=== PATIENT | female | born 1945 | race Caucasian/White ===

== ENCOUNTER → 2020-03-06 09:50 | Outpatient (BNVA) | payer MEDICARE, SELFPAY | PROVIDERS: PCP Urology; Visit Provider Urology | DX: C67.9 Malignant neoplasm of bladder, unspecified (principal) | CPT/HCPCS: 52000; 99212 ==

== ENCOUNTER → 2020-09-04 09:41 | Outpatient (BNVA) | payer MEDICARE, OTHER, SELFPAY | PROVIDERS: Visit Provider Urology | DX: C67.9 Malignant neoplasm of bladder, unspecified (principal) | CPT/HCPCS: 52000 ==

== ENCOUNTER 2021-03-12 09:34 | Outpatient (REF) | payer MEDICARE, OTHER, SELFPAY ==
[2021-03-12 16:46] LABS: Urine Cytology See Pathology rpt
== END 2021-03-12 09:35 | disposition home or self-care (01) ==
LOC: HO.LAB 09:34
PROVIDERS: Visit Provider Urology
DX: C67.9 Malignant neoplasm of bladder, unspecified (principal); F17.200 Nicotine dependence, unspecified, uncomplicated
CPT/HCPCS: 52000; 88112; 99212

== ENCOUNTER 2022-03-12 09:40 | Outpatient (REF) | payer MEDICARE, OTHER, SELFPAY ==
[2022-03-12 17:31] LABS: Urine Cytology See Pathology rpt
== END 2022-03-12 09:41 | disposition home or self-care (01) ==
LOC: HO.LAB 09:40
PROVIDERS: Visit Provider Urology
DX: C67.9 Malignant neoplasm of bladder, unspecified (principal)
CPT/HCPCS: 52000; 88112; 99212

== ENCOUNTER 2022-12-24 08:31 | Outpatient (AMB) | payer MEDICARE, SELFPAY ==
--- NOTE | 2022-12-24 08:33 | MHC.OFFWIV ---
Intake Vital Signs 12/24/22 08:35 Height 5 ft 6 in Weight 109 lb 2 oz BMI 17.6 BP 110/70 Blood Pressure Location Rt brachial Position Sitting Pulse 61 Pulse Source Pulse Oximeter Temp 97 F Temp Source Temporal Artery Scan Pulse Oximetry (%) 99 Oxygen Delivery Method Room Air Intake Visit Reasons: EP, constipation Intake Note: Pt is here c/o constipation for the past month. Patient Tobacco Use Status: Current everyday Tobacco user Allergies penicillin G Allergy (Unknown, Verified 12/24/22 08:34) unknown Penicillins [PENICILLINS] Allergy (Unknown, Verified 12/24/22 08:34) HIVES sulfa Allergy (Unknown, Uncoded 12/24/22 08:34) unknown Do you need a note to return to daycare/school/sports/work: No HPI EP, constipation HPI Details 77-year-old female patient presents today with a 1 month history of constipation. She reports infrequent bowel movements, only a couple times a week, and these are hard formed stools, she reports sometimes as rivera . She denies any abdominal pain fever, chills, or blood in stool. She states that if she takes a laxative she is able to softer bowel movements, however sometimes these become liquid form. She denies any changes in her. She has tried akgz-wsv-nhiqmqz milk of magnesia Colace, and MiraLax. She admits she is not drinking much water, and mostly drinks several cups per day. Denies any issues with urination. Denies any weight gain or weight loss. She does not have a primary care provider at this time. [facility] Medical History Malignant neoplasm of lateral wall of urinary bladder Bladder mass Surgical History History of appendectomy Social History Patient Tobacco Use Status: Current everyday Tobacco user Review of Systems Const All systems reviewed & are unremarkable except as noted in HPI and below Physical Exam Const General: cooperative, healthy appearing, comfortable and no acute distress Resp Effort & Inspection: normal respiratory effort and able to speak in complete sentences Cardio Jugular venous distension: no JVD Palpation: normal PMI Rate: regular rate Rhythm: regular rhythm GI Inspection: Yes normal to inspection Palpation (GI): Soft to palpation and No hepatosplenomegaly present Percussion: Yes normal to percussion Auscultation: normal bowel sounds Skin General skin exam: no rashes or lesions noted Extrem General: Yes capillary refill normal Psych Appearance: grossly normal Mental Status: mental status grossly normal Speech and movement: Normal speech and movement present Assessment & Plan Assessment & Plan (1) Constipation: Code(s): K59.00 - Constipation, unspecified Qualifiers: Constipation type: unspecified constipation type Qualified Code(s): K59.00 - Constipation, unspecified Plan: I had a lengthy discussion with patient regarding increase of fluids and fiber in her diet. I printed her out a list of foods high in fiber. I am also going to start her Senokot BID. I would like her to get established with a PCP which patient agrees with, and she is going to stop at the desk prior to leaving today to make an appointment for a new patient with a PCP with [facility]. We discussed that if she develops any abdominal pain, distention, bloody stool, fever, or worsening constipation, she should go to emergency for evaluation. She verbalizes understanding and agrees to plan. Medications: New sennosides 8.6 mg PO BID 30 days 60 tabs 0RF K59.00 - Constipation, unspecified Coding Level of Care Code Est Pt Level 3 (00050) Diagnoses Constipation, unspecified constipation type K59.00 Constipation type: unspecified constipation type
[2022-12-24 08:35] VITALS: BP 110/70; PULSE 61; TEMP 36.1; O2SAT 99; BMI 17.6
== END 2022-12-24 09:08 | disposition home or self-care (01) ==
PROVIDERS: Visit Provider Nurse Practitioner Family
DX: K59.00 Constipation, unspecified (principal)
CPT/HCPCS: 99213

== ENCOUNTER 2023-01-16 08:16 | Outpatient (AMB) | payer MEDICARE, SELFPAY ==
--- NOTE | 2023-01-16 08:33 | AM.OFFWIN_ITS ---
Intake Vital Signs 01/16/23 08:38 Height 5 ft 6 in Weight 106 lb 6 oz BMI 17.2 BP 140/80 H Blood Pressure Location Rt brachial Position Sitting Pulse 78 Pulse Source Pulse Oximeter Temp 98.3 F Temp Source Temporal Artery Scan Pulse Oximetry (%) 98 Oxygen Delivery Method Room Air Intake Visit Reasons: EST/bowel issues (lobby) Intake Note: pt is here for c/o bowel issues, constipation Patient Tobacco Use Status: Current everyday Tobacco user Allergies penicillin G Allergy (Unknown, Verified 01/16/23 09:08) unknown Penicillins [PENICILLINS] Allergy (Unknown, Verified 01/16/23 09:08) HIVES sulfa Allergy (Unknown, Uncoded 01/16/23 09:08) unknown Medication List - Last Reconciled 01/16/23 by Kashif Ahmadi MD sennosides 8.6 mg PO BID 30 days Do you need a note to return to daycare/school/sports/work: Yes HPI EST/bowel issues (lobby) HPI Details 77-year-old female presents to the offic e for a sick visit. Patient complains of change in bowel habits for the past 3 months. She is not a ble to have regular bowel movements. She feels constipated all the time. After she takes zytb-eqz-dsjnzew fiber, Metamucil etc, she is able to have 1 bowel movement in a week. Small quantity of stool past. No blood or mucus. Occasionally 1 or 2 episodes of loose stool. Decrease in appetite but no weight loss reported. Patient gives history of bladder cancer and is on yearly surveillance. [facility] Medical History Malignant neoplasm of lateral wall of urinary bladder Bladder mass Surgical History History of appendectomy Social History Patient Tobacco Use Status: Current everyday Tobacco user Physical Exam Vital Signs: Last Vital Signs Temp 98.3 F 01/16/23 08:38 Pulse 78 01/16/23 08:38 BP 140/80 H 01/16/23 08:38 Pulse Ox 98 01/16/23 08:38 Oxygen Delivery Method Room Air 01/16/23 08:38 BMI result Body Mass Index 17.2 Const Other: Thin. General: cooperative and healthy appearing Nutritional Appearance: well nourished Orientation/consciousness: patient oriented x3 Limitations: no limitations HEENT Head: Yes normal to inspection Eyes General: appearance normal, both eyes and all related structures Neck Neck: Yes normal visual inspection Chest Chest palpation & inspection: normal palpation of entire chest wall Resp Effort & Inspection: normal respiratory effort Neuro General: patient oriented x3 Assessment & Plan Assessment & Plan (1) Constipation: Code(s): K59.00 - Constipation, unspecified Plan: X-ray of the abdomen was consistent with constipation. Fleet enema ordered. Patient needs an urgent colonoscopy. Have accepted her as a primary care provider and given an appointment at [place] soon. Blood work has been ordered. Will continue to follow-up. Orders: Orders XR abdomen min 2V Today K59.00 - Constipation, unspecified Lipid Panel Today K59.00 - Constipation, unspecified Erythrocyte Sedimentation Rate Today K59.00 - Constipation, unspecified Basic Metabolic Panel Today K59.00 - Constipation, unspecified Complete Blood Count no Diff Today K59.00 - Constipation, unspecified Liver Panel Today K59.00 - Constipation, unspecified Thyroid Stimulating Hormone Today K59.00 - Constipation, unspecified Referrals Gastroenterology Referral K59.00 - Constipation, unspecified Coding Level of Care Code Est Pt Level 4 (84601) Diagnoses Constipation K59.00
[2023-01-16 08:38] VITALS: BP 140/80; PULSE 78; TEMP 36.8; O2SAT 98; BMI 17.2
== END 2023-01-16 09:27 | disposition home or self-care (01) ==
PROVIDERS: Visit Provider Internal Medicine
DX: K59.00 Constipation, unspecified (principal)
CPT/HCPCS: 99214

== ENCOUNTER 2023-01-16 09:06 | Outpatient (REF) | payer MEDICARE, SELFPAY ==
--- NOTE | ~2023-01-16 | XR_ITS ---
EXAMINATION: XR ABDOMEN COMPLETE CLINICAL INDICATION: 77-year-old female with constipation. COMPARISON: None available. TECHNIQUE: 2 views of the abdomen. FINDINGS: The bowel gas pattern is normal with no evidence of ileus or obstruction. No unusual soft tissue calcifications are noted. The bones are unremarkable. XR/XR abdomen min 2V IMPRESSION: Unremarkable examination.
[2023-01-16 11:36] LABS: Hematocrit 46.4 % (37.0-47.0); Hemoglobin 15.9 g/dl (12.0-16.0); Mean Corpuscular HGB Conc 34.3 g/dl (31.0-35.0); Mean Corpuscular Hemoglobin 32.9 pg (27.0-33.0); Mean Corpuscular Volume 95.9 fL (80.0-98.0); Mean Platelet Volume 10.4 fL (9.4-12.3); Platelet Count 256 X10*3/uL (160-400); Red Blood Count 4.84 X10*6/uL (4.20-5.50); Red Cell Distribution Width 13.7 % (11.0-16.0); White Blood Count 5.4 X10*3/uL (4.8-10.8)
[2023-01-16 12:13] LABS: Erythrocyte Sedimentation Rate 4 MM/HR (0-20)
[2023-01-16 12:31] LABS: Alanine Aminotransferase 13 U/L (0-31); Albumin Level 4.4 g/dL (3.5-5.0); Alkaline Phosphatase 87 U/L (39-117); Anion Gap 14 (12-20); Aspartate Amino Transferase 23 U/L (5-31); Bilirubin Direct 0.2 mg/dL (0.0-0.5); Bilirubin Total 0.6 mg/dL (0.0-1.0); Blood Urea Nitrogen 8 mg/dL (9-16); Calcium 9.6 mg/dL (8.4-10.2); Carbon Dioxide 27 mmol/L (22-29); Chloride 102 mmol/L (96-108); Cholesterol 209 mg/dL (<200); Estimated Glomerular Filt Rate > 60; Glucose Random 82 mg/dL (60-115); HDL Cholesterol 82 mg/dL (>40); LDL Cholesterol Calculated 110 mg/dL (<100); Potassium 3.8 mmol/L (3.3-5.1); Sodium 139 mmol/L (135-145); Total Protein 7.5 g/dL (6.5-8.0); Triglycerides 88 mg/dL (<150)
[2023-01-16 12:38] LABS: Thyroid Stimulating Hormone 2.05 uIU/mL (0.32-4.0)
== END 2023-01-16 09:07 | disposition home or self-care (01) ==
LOC: HO.HMGCX 09:06
PROVIDERS: Visit Provider Internal Medicine
DX: K59.00 Constipation, unspecified (principal)
CPT/HCPCS: 36415; 74019; 80048; 80061; 80076; 84443; 85027; 85652

== ENCOUNTER 2023-01-29 08:24 | Outpatient (AMB) | payer MEDICARE, SELFPAY ==
[2023-01-29 08:39] VITALS: BP 160/92; PULSE 77; O2SAT 97; BMI 17.3
--- NOTE | 2023-01-29 08:39 | A.OFFPC_ITS ---
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 Required: No Accompanied by: Self / Same As Patient Allergies penicillin G Allergy (Unknown, Verified 01/29/23 09:11) unknown Penicillins [PENICILLINS] Allergy (Unknown, Verified 01/29/23 09:11) HIVES sulfa Allergy (Unknown, Uncoded 01/29/23 09:11) unknown Medication List - Last Reconciled 01/29/23 by Kashif Ahmadi MD bisacodyl (Fleet Bisacodyl) 10 mg (30 mL) [place] DAILY PRN sennosides 8.6 mg PO BID 30 days Tobacco use date assessed: 01/29/23 Fall risk assessment: No Falls in past year Last assessed Fall Risk: 01/29/23 Dental Screening Dental Screen Date: 01/29/23 Did you have a dental visit in the last 12 months?: No Did you have a dental problem in the last 6 months where you did not have access to dental care?: No Was dental information given to patient?: Patient has dentist HPI Constipation f/u HPI Details 77-year-old female presents to the offic e to discuss her chronic medical conditions. I had seen her for the 1st time in the walk-in clinic. She was complaining of constipation. Patient was tried an enema, unfortunately the insurance did not approve it. She is been using Dulcolax suppositories with some relief. Pain symptoms have subsided. She is awaiting the colonoscopy. [facility] Medical History (Updated 01/29/23 @ 09:18 by Kashif Ahmadi MD) Essential hypertension Tobacco use disorder Malignant neoplasm of lateral wall of urinary bladder Bladder mass Surgical History History of appendectomy Social History (Updated 01/29/23 @ 08:43 by JESE Garcia) Housing: House Alcohol intake: current Alcohol intake frequency: 0-2 drinks per day Alcohol type: beer Patient Tobacco Use Status: Current everyday Tobacco user Tobacco use type: Cigarette Cigarette Packs Per Day: 1 e-Cigarette/Vaping Use: Never Used Second Hand Smoke Exposure: No service: No Current occupational status: retired Cognitive needs: No Hearing needs: No Vision needs: Yes Questionnaire PHQ-9 Over the last 2 weeks, how often have you been bothered by any of the following problems? 1. Little interest or pleasure in doing things: not at all 2. Feeling down, depressed, or hopeless: not at all 3. Trouble falling or staying asleep, or sleeping too much: not at all 4. Feeling tired or having little energy: not at all 5. Poor appetite or overeating: not at all 6. Feeling bad about yourself - or that you are a failure or have let yourself or your family down: not at all 7. Trouble concentrating on things, such as reading the newspaper or watching television: not at all 8. Moving or speaking so slowly that other people could have noticed. Or the opposite - being so fidgety or restless that you have been moving around a lot more than usual: not at all 9. Thoughts that you would be better off or of hurting yourself in some way: not at all Total score: 0 Depression Screening Interpretation: Negative Depression Screening Done: Yes Source: Developed by Drs. Elroy Valdovinos, Jacklyn Caruso, Jason Rodriguez and colleagues, with an educational tenisha from [employer]. Thrive Questionnaire Currently or been in a relationship where the following occur: no concerns reported NAOMY-7 AMB Questionnaire NAOMY-7 Date NAOMY - 7 assessed: 01/29/23 Feeling nervous, anxious, or on edge: 0 = Not at all Not being able to stop or control worryin = Not at all Worrying too much about different things: 0 = Not at all Trouble relaxin = Not at all Being so restless that it is hard to sit still: 0 = Not at all Becoming easily annoyed or irritable: 0 = Not at all Feeling afraid as if something awful might happen: 0 = Not at all Total NAOMY-7 score (0-4 normal; 5-9 mild; 10-14 moderate; 15-21 severe): 0 Source: Developed by Jacklyn Orourke Kurt Kroenke and colleagues, with an educational tenisha from [employer]. Physical exam (Primary Care) Vital Signs: Last Vital Signs Pulse 77 01/29/23 08:39 BP 160/92 H 01/29/23 08:39 Pulse Ox 97 01/29/23 08:39 Oxygen Delivery Method Room Air 01/29/23 08:39 Care Plan Goal for BP management: Elevated blood pressure. Multiple readings requested. BMI result Body Mass Index 17.3 Tobacco/Smoking Status: Tobacco use Status Tobacco use date assessed 01/29/23 01/29/23 08:45 Patient Tobacco Use Status Current everyday Tobacco 01/29/23 08:45 Tobacco use type Cigarette 01/29/23 08:45 e-Cigarette/Vaping Use Never Used 01/29/23 08:45 Are you ready to quit: No Tobacco cessation counseling provided: No PHQ-9: PHQ-9 Score PHQ-9: Total score 0 01/29/23 08:45 Depression Screening Interpretation: Negative Currently or been in a relationship where the following occur: no concerns reported Advance Care Planning discussion: Exists, not on file Date of discussion: 01/29/23 Who was present: Patient Forms completed: Health Care Proxy and MOL[facility] Actual minutes spent: 5 Const General: cooperative and healthy appearing Nutritional Appearance: well nourished Orientation/consciousness: patient oriented x3 Limitations: no limitations HENMT Head: Yes normal to inspection Eyes General: appearance normal, both eyes and all related structures Neck Neck: Yes normal visual inspection Chest Chest palpation & inspection: normal palpation of entire chest wall Resp Effort & Inspection: normal respiratory effort Neuro General: patient oriented x3 Office Procedures Flu Questionnaire Does the patient have a severe egg allergy?: No Immunizations flu vacc [id number] 6mos up(PF) 60 mcg(15 mcgx4)/0.5 mL IM syringe Performing Provider: Kashif Ahmadi MD [facility] Documented (not given) by: JESE Garcia on 01/29/23 08:46 Reason Not Given: Patient Refused Assessment and Plan Assessment & Plan (1) Bladder cancer: Comment: April 2018 TA low-grade Code(s): C67.9 - Malignant neoplasm of bladder, unspecified Plan: This condition is stable. Currently patient is on no follow-up. (2) Tobacco use disorder: Code(s): F17.200 - Nicotine dependence, unspecified, uncomplicated Plan: Patient not willing to quit smoking. (3) Constipation: Code(s): K59.00 - Constipation, unspecified (4) Essential hypertension: Code(s): I10 - Essential (primary) hypertension Plan: Blood pressure is elevated. This is the 1st isolated elevated blood pressure. I recommended that the patient check her blood pressures on more than 1 occasion in the next 3 weeks. Follow-up appointment has been given. Orders: Orders Influenza [id number] Immunization Today Z23 - Encounter for immunization Coding Level of Care Code Est Pt Level 4 (82532) Diagnoses Bladder cancer C67.9 Tobacco use disorder F17.200 Constipation K59.00 Essential hypertension I10 Additional Codes Vital Signs *Quality* - Advance Care Planning discussion: Exists, not on file ([id number])
== END 2023-01-29 09:15 | disposition home or self-care (01) ==
PROVIDERS: Visit Provider Internal Medicine
DX: K59.00 Constipation, unspecified (principal); F17.210 Nicotine dependence, cigarettes, uncomplicated; I10 Essential (primary) hypertension; Z00.00 Encounter for general adult medical examination without abnormal findings; C67.9 Malignant neoplasm of bladder, unspecified
CPT/HCPCS: 1123F; 99214

== ENCOUNTER 2023-02-04 11:40 | Outpatient (AMB) | payer MEDICARE, SELFPAY ==
--- NOTE | 2023-02-04 12:00 | MHC.OFFVIS ---
Intake Vital Signs 02/04/23 12:01 Height 5 ft 6 in Weight 105 lb BMI 16.9 BP 141/69 H Blood Pressure Location Lt brachial Position Sitting Pulse 81 Intake Visit Reasons: Colonoscopy Screening Intake Note: Patient new consult for 2st pre colonoscopy screening. Patient cc: constipation, denies any other GI issues. 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 Accompanied by: Self / Same As Patient Allergies penicillin G Allergy (Unknown, Verified 02/04/23 11:59) unknown Penicillins [PENICILLINS] Allergy (Unknown, Verified 02/04/23 11:59) HIVES sulfa Allergy (Unknown, Uncoded 01/29/23 09:11) unknown Medication List - Last Reconciled 02/04/23 by Carolyn Esparza PA-C bisacodyl (Fleet Bisacodyl) 10 mg (30 mL) [place] DAILY PRN sennosides 8.6 mg PO BID 30 days HPI HPI Comments History of Present Illness Details A 77 y/o female with chronic constipation- no pain, no blood she has never has colonoscopy - taking fiber she is well tried senna without much change Appetite is fairly good, she never eaten much, she has always been thin, she is active History of bladder cancer she follows with urology annually she has had no further issues Reviewed labs TSH normal No nausea, vomiting, hematemesis, hematochezia fever chills PFSH Medical History (Updated 02/04/23 @ 13:08 by Carolyn Esparza PA-C) Essential hypertension Tobacco use disorder Malignant neoplasm of lateral wall of urinary bladder Bladder mass Surgical History History of appendectomy Social History (Updated 02/04/23 @ 12:34 by Carolyn Esparza PA-C) Household Members Other:: 5 children Housing: House Alcohol intake: current Alcohol intake frequency: 0-2 drinks per day Alcohol type: beer Patient Tobacco Use Status: Current everyday Tobacco user Tobacco use type: Cigarette Cigarette Packs Per Day: 1 e-Cigarette/Vaping Use: Never Used Second Hand Smoke Exposure: No service: No Current occupational status: retired Cognitive needs: No Hearing needs: No Vision needs: Yes Review of Systems Const All systems reviewed & are unremarkable except as noted in HPI and below Card Denies chest pain and Denies dyspnea Resp Denies dyspnea GI Denies abdominal pain, Denies hematochezia, Reports constipation, Denies heartburn, Denies nausea and Denies vomiting Psych Reports anxiety Physical Exam Vital Signs: Last Vital Signs Pulse 81 02/04/23 12:01 BP 141/69 H 02/04/23 12:01 BMI result Body Mass Index 16.9 Const General: cooperative, healthy appearing and comfortable Orientation/consciousness: patient oriented x3 Limitations: no limitations Eyes Sclerae: sclerae normal Resp Effort & Inspection: normal respiratory effort and able to speak in complete sentences Auscultation: clear to auscultation bilaterally, no rales, no rhonchi and no wheezes Cardio Rate: regular rate Rhythm: regular rhythm Heart sounds: S1 normal heart sound present and S2 normal heart sound present GI Palpation (GI): Soft to palpation and nontender Auscultation: normal bowel sounds Neuro General: patient oriented x3 Extrem General: Yes full ROM Psych Appearance: well kempt Mental Status: mental status grossly normal Speech and movement: Normal speech and movement present Affect: normal affect Attitude: cooperative Thought process: Normal thought process present Thought content: Normal thought content present Results Reviewed Results Reviewed: FINDINGS: The bowel gas pattern is normal with no evidence of ileus or obstruction. No unusual soft tissue calcifications are noted. The bones are unremarkable. Assessment & Plan Assessment & Plan (1) History of chronic constipation: Comment: History bladder cancer, Senna, inconsistent Does not eat much for fiber Code(s): Z87.19 - Personal history of other diseases of the digestive system Plan: consistent bowel regimen Maintain high-fiber diet, supplements Colonoscopy (2) Encounter for screening colonoscopy: Comment: Very pleasant, somewhat anxious 77-year-old alert female Never had colonoscopy, do recommend certainly given medical history She has agreed Reviewed procedure, rare risks, need for escort Code(s): Z12.11 - Encounter for screening for malignant neoplasm of colon Plan: Index colonoscopy (3) Bladder cancer: Comment: April 2018 TA low-grade Code(s): C67.9 - Malignant neoplasm of bladder, unspecified Plan: Follows annually Plan Colonoscopy MiraLax Gatorade prep Consistent bowel regimen-she has MiraLax at home which she will take q.h.s. as well as Colace 200 mg Maintain high-fiber diet reviewed min use, literature given, Encouraged to call with any questions or concerns Appreciate the opportunity assist in the care this pleasant patient Orders: Orders Colonoscopy - GI Use Only Today C67.9 - Malignant neoplasm of bladder, unspecified, Z12.11 - Encounter for screening for malignant neoplasm of colon, Z87.19 - Personal history of other diseases of the digestive system Medications: New polyethylene glycol 3350 (Miralax) Take as directed by mouth the day before your procedure. 238 grams PO ONCE 1 day PRN 238 grams 0RF laxative effect docusate sodium (Colace) 200 mg (2 x 100 mg) PO BEDTIME 60 caps 5RF bisacodyl (Dulcolax (bisacodyl)) Day before procedure, prep day Take 4 tablets by mouth upon awakening followed by large glass of water 20 mg (4 x 5 mg) PO ONCE 1 day 4 tabs 0RF colonoscopy prep Z12.11 - Encounter for screening for malignant neoplasm of colon Patient Instructions: Index Colonoscopy MiraLax Gatorade prep-reviewed and literature given Consistent bowel regimen Maintain high-fiber diet Coding Level of Care Code New Pt Level 3 (64198) Diagnoses History of chronic constipation Z87.19 Encounter for screening colonoscopy Z12.11 Bladder cancer C67.9 Time Spent (min) 30
[2023-02-04 12:01] VITALS: BP 141/69; PULSE 81; BMI 16.9
== END 2023-02-04 13:47 | disposition home or self-care (01) ==
PROVIDERS: Visit Provider Physician Assistant
DX: Z87.19 Personal history of other diseases of the digestive system (principal); Z12.11 Encounter for screening for malignant neoplasm of colon; C67.9 Malignant neoplasm of bladder, unspecified
CPT/HCPCS: 99203

== ENCOUNTER → 2023-02-04 11:40 | Outpatient (BNVA) | payer MEDICARE, SELFPAY | PROVIDERS: Visit Provider Physician Assistant | DX: Z12.11 Encounter for screening for malignant neoplasm of colon (principal); C67.9 Malignant neoplasm of bladder, unspecified; Z87.19 Personal history of other diseases of the digestive system | CPT/HCPCS: 99202 ==

== ENCOUNTER 2023-02-19 10:06 | Outpatient (AMB) | payer MEDICARE, SELFPAY ==
--- NOTE | 2023-02-19 10:20 | A.OFFPC_ITS ---
Vital Signs 02/19/23 10:48 Height 5 ft 6 in Weight 106 lb 6 oz BMI 17.2 BP 140/70 H Blood Pressure Location Rt brachial Position Sitting Pulse 72 Pulse Source Pulse Oximeter Pulse Oximetry (%) 97 Oxygen Delivery Method Room Air Intake Visit Reasons: 3 week f/u Intake Note: Patient is here to follow up on high bp. Space Systems Operations Craftsman Required: No Ward Secretary: Not Required per policy Accompanied by: Self / Same As Patient Allergies penicillin G Allergy (Unknown, Verified 02/19/23 11:33) unknown Penicillins [PENICILLINS] Allergy (Unknown, Verified 02/19/23 11:33) HIVES sulfa Allergy (Unknown, Uncoded 02/19/23 11:33) unknown Medication List - Last Reconciled 02/19/23 by Kashif Ahmadi MD bisacodyl (Fleet Bisacodyl) 10 mg (30 mL) OR DAILY PRN bisacodyl (Dulcolax (bisacodyl)) 20 mg (4 x 5 mg) PO ONCE 1 day docusate sodium (Colace) 200 mg (2 x 100 mg) PO BEDTIME polyethylene glycol 3350 (Miralax) 238 grams PO ONCE PRN 1 day sennosides 8.6 mg PO BID 30 days Tobacco use date assessed: 02/19/23 Fall risk assessment: No Falls in past year Last assessed Fall Risk: 02/19/23 HPI 3 week f/u HPI Details 77-year-old female presents to the [facility] for a follow-up visit. Patient noted elevated blood pressures at home. She is still very reluctant to take medications. At continues to have constipation issues. Was seen by the gastroenterology office and a colonoscopy has been scheduled for May. She is continuing various modalities to relieve her symptoms and have a bowel movement, but is frustrated. At age 72 patient had mild hematuria. Routine cystoscopy showed bladder cancer which was scraped. She received no further treatment. She is on surveillance and sees a urologist annually. Her upcoming visit is in March. [facility] Medical History Essential hypertension Tobacco use disorder Malignant neoplasm of lateral wall of urinary bladder Bladder mass Surgical History History of appendectomy Social History Household Members Other:: 5 children Housing: House Alcohol intake: current Alcohol intake frequency: 0-2 drinks per day Alcohol type: beer Patient Tobacco Use Status: Current everyday Tobacco user Tobacco use type: Cigarette Cigarette Packs Per Day: 1 Cigarettes Per Day: 20 e-Cigarette/Vaping Use: Never Used Second Hand Smoke Exposure: Yes service: No Current occupational status: retired Cognitive needs: No Hearing needs: No Vision needs: Yes Questionnaire NAOMY-7 AMB Questionnaire NAOMY-7 Date NAOMY - 7 assessed: 01/29/23 Source: Developed by Drs. Elroy Valdovinos, Jacklyn Caruso, Jason Rodriguez and colleagues, with an educational tenisha from [employer]. Physical exam (Primary Care) Vital Signs: Last Vital Signs Pulse 72 02/19/23 10:48 BP 140/70 H 02/19/23 10:48 Pulse Ox 97 02/19/23 10:48 Oxygen Delivery Method Room Air 02/19/23 10:48 Care Plan Goal for BP management: Blood pressure is in range. BMI result Body Mass Index 17.2 Tobacco/Smoking Status: Tobacco use Status Tobacco use date assessed 02/19/23 02/19/23 10:50 Patient Tobacco Use Status Current everyday Tobacco 02/19/23 10:50 Tobacco use type Cigarette 02/19/23 10:50 e-Cigarette/Vaping Use Never Used 02/19/23 10:50 Const General: cooperative and healthy appearing Nutritional Appearance: well nourished Orientation/consciousness: patient oriented x3 Limitations: no limitations HENMT Head: Yes normal to inspection Eyes General: appearance normal, both eyes and all related structures Neck Neck: Yes normal visual inspection Chest Chest palpation & inspection: normal palpation of entire chest wall Resp Effort & Inspection: normal respiratory effort Neuro General: patient oriented x3 Assessment and Plan Assessment & Plan (1) History of chronic constipation: Comment: History bladder cancer, Senna, inconsistent Does not eat much for fiber Code(s): Z87.19 - Personal history of other diseases of the digestive system Plan: A note has been sent to the fireboat operator to determine if a colonoscopy at an earlier date is possible. (2) Essential hypertension: Code(s): I10 - Essential (primary) hypertension Plan: Patient is reluctant to take blood pressure medications. Risks explained. (3) Bladder cancer: Comment: April 2018 TA low-grade Code(s): C67.9 - Malignant neoplasm of bladder, unspecified Orders: Orders CT abdomen pelvis wo IV con Today C67.9 - Malignant neoplasm of bladder, unspecified, K59.00 - Constipation, unspecified Coding Level of Care Code Est Pt Level 4 (10486) Diagnoses History of chronic constipation Z87.19 Essential hypertension I10 Bladder cancer C67.9
[2023-02-19 10:48] VITALS: BP 140/70; PULSE 72; O2SAT 97; BMI 17.2
== END 2023-02-19 13:58 | disposition home or self-care (01) ==
PROVIDERS: Visit Provider Internal Medicine
DX: Z87.19 Personal history of other diseases of the digestive system (principal); I10 Essential (primary) hypertension; C67.9 Malignant neoplasm of bladder, unspecified
CPT/HCPCS: 99214

== ENCOUNTER 2023-03-10 06:49 | Day surgery (SDC) | payer MEDICARE, SELFPAY ==
--- NOTE | 2023-03-09 12:03 | P.CONAN_ITS ---
Documented by User: Edwige Pérez NP 03/09/23 12:03 HPI - Anesthesia Eval Consult details Narrative: 77yo F for Colonoscopy PMFSH Active Problems Active Problems: All Active Problems (Updated 02/04/23 @ 13:08 by Carolyn Esparza PA-C) Encounter for screening colonoscopy (Acute) History of chronic constipation (Acute) Essential hypertension (Acute) Tobacco use disorder (Acute) Acute bronchitis (Acute) Bladder cancer (Acute) Past Medical History Medical History Essential hypertension Tobacco use disorder Malignant neoplasm of lateral wall of urinary bladder Bladder mass Surgical History Surgical History History of appendectomy Social History Social History Household Members Other:: 5 children Housing: House Alcohol intake: current Alcohol intake frequency: 0-2 drinks per day Alcohol type: beer Patient Tobacco Use Status: Current everyday Tobacco user Tobacco use type: Cigarette Cigarette Packs Per Day: 1 Cigarettes Per Day: 20 e-Cigarette/Vaping Use: Never Used Second Hand Smoke Exposure: Yes service: No Current occupational status: retired Cognitive needs: No Hearing needs: No Vision needs: Yes Meds Allergies Allergy/AdvReac Type Severity Reaction Status Date / Time penicillin G Allergy Unknown unknown Verified 03/10/23 07:06 Penicillins [PENICILLINS] Allergy Unknown HIVES Verified 03/10/23 07:06 sulfa Allergy Unknown unknown Uncoded 03/10/23 07:06 Exam Pertinent Lab Results Pertinent Lab Results: Laboratory Tests 01/16/23 09:36 WBC 5.4 Hgb 15.9 Hct 46.4 Plt Count 256 Sodium 139 Potassium 3.8 Chloride 102 Carbon Dioxide 27 BUN 8 L Creatinine 0.71 Assessment and Plan Assessment Anesthesia Assessment: Chart Reviewed Documented by User: Ariel Olguin MD 03/11/23 09:55 [facility] Past Medical History Medical History Essential hypertension Tobacco use disorder Malignant neoplasm of lateral wall of urinary bladder Bladder mass Surgical History Surgical History History of appendectomy Social History Social History Household Members Other:: 5 children Housing: House Alcohol intake: current Alcohol intake frequency: 0-2 drinks per day Alcohol type: beer Patient Tobacco Use Status: Current everyday Tobacco user Tobacco use type: Cigarette Cigarette Packs Per Day: 1 Cigarettes Per Day: 20 e-Cigarette/Vaping Use: Never Used Second Hand Smoke Exposure: Yes service: No Current occupational status: retired Cognitive needs: No Hearing needs: No Vision needs: Yes Meds Allergies Allergy/AdvReac Type Severity Reaction Status Date / Time penicillin G Allergy Unknown unknown Verified 03/10/23 07:06 Penicillins [PENICILLINS] Allergy Unknown HIVES Verified 03/10/23 07:06 sulfa Allergy Unknown unknown Uncoded 03/10/23 07:06 Exam Airway Heart: [id number]+[id number] Lungs: CTA B/L Documented by User: Brennan Rodarte MD 03/10/23 13:55 [facility] Past Medical History Medical History Essential hypertension Tobacco use disorder Malignant neoplasm of lateral wall of urinary bladder Bladder mass Family History Family history of problems with anesthesia: No Surgical History Surgical History History of appendectomy History of Problems with Anesthesia: No Social History Social History Household Members Other:: 5 children Housing: House Alcohol intake: current Alcohol intake frequency: 0-2 drinks per day Alcohol type: beer Patient Tobacco Use Status: Current everyday Tobacco user Tobacco use type: Cigarette Cigarette Packs Per Day: 1 Cigarettes Per Day: 20 e-Cigarette/Vaping Use: Never Used Second Hand Smoke Exposure: Yes service: No Current occupational status: retired Cognitive needs: No Hearing needs: No Vision needs: Yes Meds Allergies Allergy/AdvReac Type Severity Reaction Status Date / Time penicillin G Allergy Unknown unknown Verified 03/10/23 07:06 Penicillins [PENICILLINS] Allergy Unknown HIVES Verified 03/10/23 07:06 sulfa Allergy Unknown unknown Uncoded 03/10/23 07:06 Exam Airway Mallampati Class: II TM Dist: >3cm Neck ROM: Full Loose/Missing/Broken Teeth: Yes Assessment and Plan Assessment Anesthesia Assessment: Anesthesia Plan Discussed Final Anesthetic Review Family History of Problems with Anesthesia: No History of Problems with Anesthesia: No NPO: Yes ASA Class: III Final Preanesthetic Review: No Changes in Pt Med Stat, Meds/Allgs Chart Reviewed, Consent Obtained/Reviewed and Anes Risks/Benef Reviewed Patient Risk: Intermediate Procedure Risk: Low Anesthetic Plan Anesthetic Plan: MAC: Disposition: Standard PACU
--- NOTE | 2023-03-10 05:58 | P.HPSUR_ITS ---
Pre-Procedural Eval Section A Date of Service: 03/10/23 Section B Chief Complaint: Constipation, unspecified Details of Present Illness: brother with colon cacner Relevant Family History (Specify if Yes): Yes Relevant Social History: Tobacco Use Present Medications: see Short Stay Collaborative assessment Medical History: Significant History (Essential hypertension Tobacco use d isorder Malignant neoplasm of lateral wall of urinary bladder Bladder mass) History of Previous Operations: Relevant previous surgery/procedure and date(s) (appendectomy) Allergies: Allergies Allergy/AdvReac Type Severity Reaction Status Date / Time penicillin G Allergy Unknown unknown Verified 02/19/23 11:33 Penicillins [PENICILLINS] Allergy Unknown HIVES Verified 02/19/23 11:33 sulfa Allergy Unknown unknown Uncoded 02/19/23 11:33 Review of Systems Sugical H&P ROS: Negative: Constitution, Cardiovascular, Respiratory, Neurological, Psychiatric, Hem-Onc, Allergic/Immunologic, Gastrointestinal, Genitourinary, Musculoskeletal, Integumentary, Endocrine and Eyes/Ears/Nose/Throat Exam Surgical H&P Exam: Normal: HEENT, Normal: Heart, Normal: Lungs, Normal: Extremities, Normal: Abdomen, Normal: Skin and Normal: Neurological Plan I have reviewed the history and physical and performed a pertinent physical examination on my patient. No changes have occurred unless specified. Time Spent With Patient Time: Total time managing care of this patient today ____ minutes.
[2023-03-10 07:07] VITALS: BMI 17.0
[2023-03-10] MEDS: Lactated Ringers 1,000 ML 100 ML IVCONT (07:11)
[2023-03-10 07:21] VITALS: BP 148/86; PULSE 82; RESP 18; TEMP 36.7; O2SAT 99
--- NOTE | 2023-03-10 08:08 | P.OP_ITS ---
Operative Note Operative Note Date of Service: 03/10/23 Narrative: Operative Information Procedure Description: Colonoscopy Indication: altered bowel habit Anesthesia: MAC COLONOSCOPY Instrument: Olympus variable stiffness pediatric scope 190L Colonoscopy Monitoring: Vital signs and clinical assessment, continuous EKG monitoring, Pulse oximetry, Carbon Dioxide monitoring and blood pressure monitoring were done throughout the procedure. Colon withdrawal time was [] minutes. Procedure: The patient was placed in the left lateral decubitis position and pre-procedure medications were administered. After a digital rectal examination of the ano-rectum, the video colonoscope was inserted into the rectum and advanced through the colon to the cecum/TI. The colonoscope was slowly withdrawn in a retrograde panoramic fashion and the colon mucosa was carefully examined including a retroflexed view of the rectum. Findings and interventions are described below. Procedure Difficulty: moderate due to tight sigmoid colon Findings: Terminal Ileum-not intubated Cecum:normal Ascending Colon: x 1 sessile polyp 12 mm removed with cold snare, x1 flat polyp with fecal cap 12 mm raised with eleview and removed with cold snare and x 2 clips applied Transverse Colon -normal Descending Colon: 5-8 mm sessile polyp removed with cold snare Sigmoid Colon: moderate severe diverticulosis, 10 mm sessile polyp removed with cold snare Rectum: Retroflexion with small internal hemorrhoids, grade I Anorectum - normal Colon preparation: Rodney Bowel Preparation Scale Right colon; 2 Transverse colon: 2 Left colon; 2 (0 = Unprepared colon segment with mucosa not seen due to solid stool that cannot be cleared. 1 = Portion of mucosa of the colon segment seen, but other areas of the colon segment not well seen due to staining, residual stool and/or opaque liquid. 2 = Minor amount of residual staining, small fragments of stool and/or opaque liquid, but mucosa of colon segment seen well. 3 = Entire mucosa of colon segment seen well with no residual staining, small fragments of stool or opaque liquid) Impression and Post Procedure Diagnosis: polyps internal hemorrhoids diverticular disease Plan: High fiber diet leaflet Avoid straining at stool, epsom salts and sitz bath, anusol supps or cream Repeat Colonoscopy in 1-2 years due to polyp burden and size of polyps or earlier if clinically indicated Above findings were reviewed with the patient and relevant handouts were provided if indicated.
[2023-03-10 09:00] VITALS: BP 112/77; PULSE 79; RESP 13; TEMP 36.4; O2SAT 95
[2023-03-10 09:15] VITALS: BP 126/75; PULSE 53; RESP 16; TEMP 36.4; O2SAT 100
== END 2023-03-10 09:53 | disposition home or self-care (01) ==
PROVIDERS: PCP Internal Medicine; Visit Provider Internal Medicine Gastroenterology
PROC: 0DJD8ZZ Inspection of Lower Intestinal Tract, Via Natural or Artificial Opening Endoscopic (ICD-10-PCS; CPT 45378; principal; 2023-03-10 08:10)
DX: Z12.11 Encounter for screening for malignant neoplasm of colon (principal); D12.2 Benign neoplasm of ascending colon; Z87.19 Personal history of other diseases of the digestive system; D12.4 Benign neoplasm of descending colon; D12.5 Benign neoplasm of sigmoid colon; K57.30 Diverticulosis of large intestine without perforation or abscess without bleeding; K64.0 First degree hemorrhoids; C67.9 Malignant neoplasm of bladder, unspecified; I10 Essential (primary) hypertension; F41.9 Anxiety disorder, unspecified; Z79.899 Other long term (current) drug therapy; Z88.0 Allergy status to penicillin; Z88.2 Allergy status to sulfonamides; F17.210 Nicotine dependence, cigarettes, uncomplicated
CPT/HCPCS: 45385; 45381; 88305; J2704

== ENCOUNTER → 2023-03-10 06:49 | Outpatient (BNV) | payer MEDICARE, SELFPAY | PROVIDERS: PCP Internal Medicine; Visit Provider Internal Medicine Gastroenterology | DX: R19.4 Change in bowel habit (principal); D12.2 Benign neoplasm of ascending colon; D12.4 Benign neoplasm of descending colon; D12.5 Benign neoplasm of sigmoid colon; K64.0 First degree hemorrhoids | CPT/HCPCS: 45381; 45385 ==

== ENCOUNTER 2023-04-07 10:40 | Outpatient (REF) | payer MEDICARE, OTHER, SELFPAY ==
[2023-04-07 17:37] LABS: Urine Cytology See Pathology rpt
== END 2023-04-07 10:41 | disposition home or self-care (01) ==
LOC: HO.LAB 10:40
PROVIDERS: Visit Provider Urology
DX: C67.9 Malignant neoplasm of bladder, unspecified (principal)
CPT/HCPCS: 52000; 81003; 88112; 99212

== ENCOUNTER 2023-04-07 10:40 | Outpatient (AMB) | payer MEDICARE, MEDICAID, SELFPAY ==
--- NOTE | 2023-04-07 10:51 | MHC.OFFVIS ---
Intake Intake Visit Reasons: Cysto(Bladder Ca) Intake Note: Patient is Present for Cystoscopy Urology Med: None Antibiotic Allergy: Penicillin, Sulfa Blood Thinner: None URO- G Disposable Cystoscope lot: [id number] exp: 07/13/2024 Allergies penicillin G Allergy (Unknown, Verified 04/07/23 10:55) unknown Penicillins [PENICILLINS] Allergy (Unknown, Verified 04/07/23 10:55) HIVES sulfa Allergy (Unknown, Uncoded 04/07/23 10:55) unknown HPI HPI Comments History of Present Illness Details Susana is a pleasant female. She is seen for the following urologic issue - bladder cancer Ongoing surveillance cystoscopy Normal today Normal appearing bladder today Continue surveillance Bladder Cancer: TA noninvasive April 2018 Bladder cancer was initially diagnosed during evaluation for gross hematuria - ER visit - Dr Yu 05/18. Bladder intervention(s) performed 05/18 , TURBT, Ta noninvasive papillary carcinoma, Low Grade. Recurrence Risk per EORTC Low Risk. Bladder cancer risk factors Organic Solvent exposure No smoking Yes - greater than 30 pack-year history hair dye exposure No Associated symptoms hematuria Yes urge No frequency No nocturia > 2 No dysuria No Prior Cystoscopy 08/18 NAD 02/17 NAD 08/19 NAD - flat small erythematous area - 03/22 NAD - 09/19 NAD, 03/23 NAD, 03/24 NAD Prior Cytology 08/19 , Atypical inflammatory cells - occasional. Prior Imaging 05/18 , CT scan with contrast, No evidence for metastases, Filling Defect, on right 2cm. Previous intravesical therapy 05/18 , none. Planned treatment surveillance protocol. [facility] Medical History Essential hypertension Tobacco use disorder Malignant neoplasm of lateral wall of urinary bladder Bladder mass Surgical History History of appendectomy Social History Household Members Other:: 5 children Housing: House Alcohol intake: current Alcohol intake frequency: 0-2 drinks per day Alcohol type: beer Patient Tobacco Use Status: Current everyday Tobacco user Tobacco use type: Cigarette Cigarette Packs Per Day: 1 Cigarettes Per Day: 20 e-Cigarette/Vaping Use: Never Used Second Hand Smoke Exposure: Yes service: No Current occupational status: retired Cognitive needs: No Hearing needs: No Vision needs: Yes Review of Systems Const Denies chills and Denies fever(s) Card Reports no additional complaints and Denies syncope Resp Denies cough GI Denies abdominal pain and Denies heartburn Reports as per HPI and Denies change in libido Neuro Denies syncope Psych Denies change in libido Endo Denies change in libido Physical Exam Const General: cooperative, healthy appearing, comfortable and no acute distress Orientation/consciousness: patient oriented x3 HEENT Face and sinus: Yes normal facial exam Mouth: moist mucous membranes Neck Neck: Yes normal visual inspection, Yes full ROM and Yes trachea midline Chest Chest palpation & inspection: normal inspection of the chest Resp Effort & Inspection: normal respiratory effort, able to speak in complete sentences and no respiratory distress GI Inspection: Yes normal to inspection Back/Spine/Pelvis Cervical Spine: normal cervical lordosis Thoracic/Lumbar Spine: thoracic and lumbar spine normal to inspection Skin General skin exam: no rashes or lesions noted Neuro General: patient oriented x3, gait normal, tone normal and moves all extremities Extrem General: Yes normal to inspection and Yes capillary refill normal Office Procedures Cystoscopy Consent Discussed risk and benefit or proposed procedure with the patient. Information consent for procedure given to the patient. Discussed technical aspects, risks, benefits and alternatives in full. Addressed all of the patient's questions and concerns regarding the procedure. The patient demonstrated knowledge and understanding. They wish to proceed with this procedure. Preparation The patient was prepped in the usual manner. A milk tanker driver was present and in the room. Genitalia was prepped with betadine solution in a sterile manner. Lidocaine Jelly 2% was placed into the urethra and 16Fr flexible Olympus cystoscope was inserted into the meatus after adequate lubrication. Procedure Meatus caruncle Urethra normal Bladder examination with retroflexion of cystoscope Bladder Orifices normal shape and position Trigone mild metaplasia Bladder Capacity normal Trabeculations grade 1 Cellule Formation yes Diverticulum Formation - Mucosal Erythema - Bladder Tumor - [id number] DISPOSABLE SCOPE URO-G FLEXIBLE SCOPE Procedure code (CPT) selection complete Office Meds lidocaine HCl 2 % mucosal jelly in applicator Performing Provider: Saul Yu MD [facility] Administered by: Donal Ramos LPN on 04/07/23 10:58 Dose Route Admin Location Dispensed Lot Number Expiration Date NDC [place] 10 mL intra-urethral 10 mL nitrofurantoin monohydrate/macrocrystals 100 mg capsule Performing Provider: Saul Yu MD Performing Location: [facility] Administered by: Donal Ramos LPN on 04/07/23 10:58 Dose Route Admin Location Dispensed Lot Number Expiration Date NDC [place] 100 mg PO 1 cap naproxen 500 mg tablet Performing Provider: Saul Yu MD Performing Location: [facility] Administered by: Donal Ramos LPN on 04/07/23 10:58 Dose Route Admin Location Dispensed Lot Number Expiration Date NDC Bankman 500 mg PO 1 tab Results AMB Urinalysis, Automated UA Leukoctes 500 Debo/uL Last Edit by JESE Kapoor on 04/07/23 11:00 UA Nitrite Negative Last Edit by JESE Kapoor on 04/07/23 11:00 UA Urobilinogen 0.2 mg/dL Last Edit by JESE Kapoor on 04/07/23 11:00 UA Protein 15 mg/dL Last Edit by JESE Kapoor on 04/07/23 11:00 UA pH 6.0 Last Edit by JESE Kapoor on 04/07/23 11:00 UA Blood 10 Bala/uL Last Edit by JESE Kapoor on 04/07/23 11:00 UA Specific [place] 1.015 Last Edit by JESE Kapoor on 04/07/23 11:00 UA Ketone Negative Last Edit by JESE Kapoor on 04/07/23 11:00 UA Bilirubin 0 mg/dL Last Edit by JESE Kapoor on 04/07/23 11:00 UA Glucose 0 mg/dL Last Edit by JESE Kapoor on 04/07/23 11:00 Results Reviewed Results Reviewed: Laboratory Last Values Urine pH (Auto) 6.0 04/07/23 10:55 Specific [place] (Auto) 1.015 04/07/23 10:55 Urine Protein (Auto) 15 mg/dL 04/07/23 10:55 Glucose (UA)(Auto) 0 mg/dL 04/07/23 10:55 Urine Ketones (Auto) Negative 04/07/23 10:55 Urine Blood (Auto) 10 Bala/uL 04/07/23 10:55 Urine Nitrite (Auto) Negative 04/07/23 10:55 Urine Bilirubin (Auto) 0 mg/dL 04/07/23 10:55 Urine Urobilinogen (Auto) 0.2 mg/dL 04/07/23 10:55 Leukocyte Esterase (Auto) 500 Debo/uL 04/07/23 10:55 Assessment & Plan Assessment & Plan (1) Bladder cancer: Comment: April 2018 TA low-grade Code(s): C67.9 - Malignant neoplasm of bladder, unspecified Plan Twelve month follow-up cysto Orders: Orders AMB Urinalysis Automated Today Z13.9 - Encounter for screening, unspecified AMB Cystoscopy Today C67.9 - Malignant neoplasm of bladder, unspecified Urine Cytology Today C67.9 - Malignant neoplasm of bladder, unspecified Patient Instructions: Imaging studies, laboratory and physical exam results were discussed and reviewed in detail. No major barriers to patient understanding were identified. An opportunity to ask questions regarding the treatment plan was provided. All questions were answered. The patient expressed understanding and agreement with the above treatment plan. The patient is aware they should contact our office by phone for worsening of their current condition or the appearance of new urologic symptoms. Compliance is encouraged with any medications and followup testing that is ordered. It is a privilege to participate in the urologic care of your patient. If you have any questions or concerns regarding treatment for the above conditions, or other urologic issues, please do not hesitate to contact me. The office telephone contact is [phone]. This note is constructed using voice recognition software. While every effort has been made to ensure accuracy assembler fitter errors may have been included. Yours sincerely, Dr Saul Yu MD, [facility] - Urology Providers of Expert, Compassionate Care for the Genitourinary System Coding Level of Care Code Est Pt Level 4 (50140) Diagnoses Bladder cancer C67.9 CPT Codes Cystoscopy - CPT: 25478-[id number] ([id number])
== END 2023-04-07 11:15 | disposition home or self-care (01) ==
PROVIDERS: Visit Provider Urology
DX: C67.9 Malignant neoplasm of bladder, unspecified (principal); Z13.9 Encounter for screening, unspecified
CPT/HCPCS: 52000; 99213

== ENCOUNTER 2023-04-17 08:16 | Outpatient (AMB) | payer MEDICARE, SELFPAY ==
[2023-04-17 08:33] VITALS: BP 128/90; PULSE 84; TEMP 36.9; O2SAT 96; BMI 16.8
--- NOTE | 2023-04-17 08:33 | AM.OFFWIN_ITS ---
Intake Vital Signs 04/17/23 08:33 Height 5 ft 6 in Weight 104 lb BMI 16.8 BP 128/90 H Blood Pressure Location Lt brachial Position Sitting Pulse 84 Pulse Source Pulse Oximeter Temp 98.4 F Temp Source Temporal Artery Scan Pulse Oximetry (%) 96 Oxygen Delivery Method Room Air Intake Visit Reasons: EP Cough (masked) Intake Note: pt is here today for cough started 1 week ago Patient Tobacco Use Status: Current everyday Tobacco user Allergies penicillin G Allergy (Unknown, Verified 04/17/23 08:33) unknown Penicillins [PENICILLINS] Allergy (Unknown, Verified 04/17/23 08:33) HIVES sulfa Allergy (Unknown, Uncoded 04/07/23 10:55) unknown Do you need a note to return to daycare/school/sports/work: No HPI HPI Comments History of Present Illness Details This is a 77-year-old female who presented to the walk-in clinic complaining of a dry/hacking cough x3 days in the setting of viral URI symptoms x1 week. Patient states she had viral URI symptoms such as sinus/nasal congestion, rhinorrhea, sore throat, low-grade fever/chills, and malaise/fatigue for the past 1 week. Her viral URI symptoms significantly improved; however, she is now complaining of a dry/hacking cough. She denies any sputum production or purulence. She denies any chest pain or shortness of breath. [facility] Medical History Essential hypertension Tobacco use disorder Malignant neoplasm of lateral wall of urinary bladder Bladder mass Surgical History History of appendectomy Social History Household Members Other:: 5 children Housing: House Alcohol intake: current Alcohol intake frequency: 0-2 drinks per day Alcohol type: beer Patient Tobacco Use Status: Current everyday Tobacco user Tobacco use type: Cigarette Cigarette Packs Per Day: 1 Cigarettes Per Day: 20 e-Cigarette/Vaping Use: Never Used Second Hand Smoke Exposure: Yes service: No Current occupational status: retired Cognitive needs: No Hearing needs: No Vision needs: Yes Review of Systems Const All systems reviewed & are unremarkable except as noted in HPI and below Reports no additional complaints Eyes Reports no additional complaints ENT Reports no additional complaints Card Reports no additional complaints Resp Reports no additional complaints GI Reports no additional complaints Reports no additional complaints Musc Reports no additional complaints Skin/Breast Reports system reviewed and no additional complaints, except as documented Neuro Reports no additional complaints Psych Reports no additional complaints Endo Reports no additional complaints Christiano/Lymph Reports no additional complaints Aller/Immun Reports no additional complaints Physical Exam Vital Signs: Last Vital Signs Temp 98.4 F 04/17/23 08:33 Pulse 84 04/17/23 08:33 BP 128/90 H 04/17/23 08:33 Pulse Ox 96 04/17/23 08:33 Oxygen Delivery Method Room Air 04/17/23 08:33 BMI result Body Mass Index 16.8 Const Other: Vital signs reviewed. Constitutional: Non-toxic appearing. No acute distress. Well-developed and well-nourished. HEENT: Normocephalic and atraumatic. Skin: Warm and dry. No rashes or lesions noted. Neck: Full and painless range of motion. No cervical lymphadenopathy. Cardio: Regular rate and rhythm. No murmurs, gallops, or rubs. No lower extremity edema. No JVD. Pulmonary: No respiratory distress. No accessory muscle usage. Clear to auscultation bilaterally without wheezing, crackles, or rhonchi. Gastrointestinal: Soft, nontender, and nondistended in all 4 quadrants. Musculoskeletal: Normal range of motion in joints throughout the body. No deformity or other signs of injury. Neuro: Alert and oriented x4. Cranial nerves 2-12 grossly intact. No focal deficits appreciated. Psych: Normal mood and affect. Assessment & Plan Assessment & Plan (1) Post-viral cough syndrome: Code(s): R05.8 - Other specified cough Plan: This is a 77-year-old female who presented to the walk-in clinic complaining of a dry/hacking cough x3 days in the setting of recent viral URI symptoms, which have improved/resolved. On physical examination, her lungs are clear to auscultation bilaterally without evidence of wheezing to suggest acute bronchitis. Patient very likely has a postviral cough syndrome. Patient was sent home on p.o. benzonatate 200 mg 3 times daily as needed. She was advised to follow-up here or proceed to the emergency room if she were to develop persistent/worsening symptoms such as chest pain, shortness of breath, sputum production/purulence, or fever/chills. Patient verbalized understanding and she is in agreement with the plan. Medications: New benzonatate 200 mg PO TID PRN 20 caps 0RF cough Coding Level of Care Code Est Pt Level 3 (10617) Diagnoses Post-viral cough syndrome R05.8
== END 2023-04-17 09:03 | disposition home or self-care (01) ==
PROVIDERS: PCP Internal Medicine; Visit Provider Physician Assistant Medical
DX: R05.8 Other specified cough (principal)
CPT/HCPCS: 99213

== ENCOUNTER 2023-12-19 09:03 | Outpatient (AMB) | payer MEDICARE, SELFPAY ==
[2023-12-19 09:05] VITALS: BP 132/80; PULSE 84; TEMP 36.4; O2SAT 97; BMI 16.8
--- NOTE | 2023-12-19 09:05 | AM.OFFWIN_ITS ---
Intake Vital Signs 12/19/23 09:05 Height 5 ft 6 in Weight 104 lb BMI 16.8 BP 132/80 Blood Pressure Location Rt brachial Position Sitting Pulse 84 Pulse Source Pulse Oximeter Temp 97.5 F Temp Source Oral Pulse Oximetry (%) 97 Oxygen Delivery Method Room Air Intake Visit Reasons: EP-UTI Intake Note: Pt is here today c/o ? UTI urgency and frequent urination Patient Tobacco Use Status: Current everyday Tobacco user Allergies penicillin G Allergy (Unknown, Verified 12/19/23 09:06) unknown Penicillins [PENICILLINS] Allergy (Unknown, Verified 12/19/23 09:06) HIVES sulfa Allergy (Unknown, Uncoded 12/19/23 09:06) unknown HPI HPI Comments History of Present Illness Details Patient is a 78yo F who presents with concern UTI jShe said = fatigue since Ache in lower abdomen associated; fels like ovulating but in menopause Pressure constant; pain level is minimal Last BM was normal; no blood or melena She said seems harder to urinate; less is coming out No blood, dysuria No vaginal bleedin gor discharge No fever or chills Denies URI symptoms; cough, CP or SOB Denies joint aches, rashes PFSH Medical History Essential hypertension Tobacco use disorder Malignant neoplasm of lateral wall of urinary bladder Bladder mass Surgical History History of appendectomy Social History Household Members Other:: 5 children Housing: House Alcohol intake: current Alcohol intake frequency: 0-2 drinks per day Alcohol type: beer Patient Tobacco Use Status: Current everyday Tobacco user Tobacco use type: Cigarette Cigarette Packs Per Day: 1 Cigarettes Per Day: 20 e-Cigarette/Vaping Use: Never Used Second Hand Smoke Exposure: Yes service: No Current occupational status: retired Cognitive needs: No Hearing needs: No Vision needs: Yes Review of Systems Const Denies body aches, Denies chills, Reports fatigue, Denies fever(s) and Denies headache(s) ENT Denies dizziness, Denies otalgia, Denies headache(s), Denies nasal congestion, Denies nasal discharge and Denies sore throat Card Denies chest pain and Denies dyspnea Resp Denies cough and Denies dyspnea GI Reports abdominal pain, Denies melena, Denies hematochezia, Denies constipation, Denies diarrhea, Denies nausea and Denies vomiting Reports difficulty voiding, Denies dysuria, Denies urinary hesitancy, Reports urinary urgency and Denies vaginal discharge Musc Denies back pain and Denies myalgias Skin/Breast Denies rash Neuro Denies dizziness and Denies headache(s) Endo Reports fatigue Physical Exam Vital Signs: Last Vital Signs Temp 97.5 F 12/19/23 09:05 Pulse 84 12/19/23 09:05 BP 132/80 12/19/23 09:05 Pulse Ox 97 12/19/23 09:05 Oxygen Delivery Method Room Air 12/19/23 09:05 BMI result Body Mass Index 16.8 General: Non-toxic, NAD. Speaking full sentences. Skin: Warm dry throughout Eye: EOMI HENT: Airway patent. Uvula midline. No pharyngeal erythema or edema. No OPEN HEARTH HELPER. Bilateral canals clear. TM non-erythematous, non-bulging. No TM perforation or hemotympanum noted. Respiratory: CTA bilaterally. No wheezes, rales or rhonchi Cardiac: RRR. No murmur Abdominal: No CVAT. BS present x 4 quad. Non-tender to light palpation. Minimal without rebound tenderness to generalized lower abdomen. MSK: Full ROM extremities. Neurology: A/O No aphasia or facial droop. Gait without abnormality Psych: Good mood and affect Results AMB Urinalysis, Automated UA Leukoctes 0 Debo/uL Last Edit by Emmie Rushing CMA on 12/19/23 09:14 UA Nitrite Negative Last Edit by Emmie Rushing CMA on 12/19/23 09:14 UA Urobilinogen 0.2 mg/dL Last Edit by Emmie Rushing CMA on 12/19/23 09:14 UA Protein 0 mg/dL Last Edit by Emmie Rushing CMA on 12/19/23 09:14 UA pH 6.0 Last Edit by Emmie Rushing CMA on 12/19/23 09:14 UA Blood 0 Bala/uL Last Edit by Emmie Rushing CMA on 12/19/23 09:14 UA Specific [place] 1.020 Last Edit by Emmie Rushing CMA on 12/19/23 09:14 UA Ketone Negative Last Edit by Emmie Rushing CMA on 12/19/23 09:14 UA Bilirubin 0 mg/dL Last Edit by Emmie Rushing CMA on 12/19/23 09:14 UA Glucose 0 mg/dL Last Edit by Emmie Rushing CMA on 12/19/23 09:14 Results Reviewed Results Reviewed: Laboratory Last Values Urine pH (Auto) 6.0 12/19/23 09:12 Specific [place] (Auto) 1.020 12/19/23 09:12 Urine Protein (Auto) 0 mg/dL 12/19/23 09:12 Glucose (UA)(Auto) 0 mg/dL 12/19/23 09:12 Urine Ketones (Auto) Negative 12/19/23 09:12 Urine Blood (Auto) 0 Bala/uL 12/19/23 09:12 Urine Nitrite (Auto) Negative 12/19/23 09:12 Urine Bilirubin (Auto) 0 mg/dL 12/19/23 09:12 Urine Urobilinogen (Auto) 0.2 mg/dL 12/19/23 09:12 Leukocyte Esterase (Auto) 0 Debo/uL 12/19/23 09:12 Assessment & Plan Assessment & Plan (1) Pelvic pressure in female: Code(s): R10.2 - Pelvic and perineal pain Plan: U/a: without infection of blood Culture sent Discussed most likely constipation; not acute abdomen at this time Discused in depth s/s to monitor for and when to present to ER Discussed increase fiber in diet, miralaz OTC and increase hydration Pt had yuri dditional questions or concerns at this time Orders: Orders AMB Urinalysis Automated Today Z13.9 - Encounter for screening, unspecified Urine Culture Today R10.2 - Pelvic and perineal pain Coding Level of Care Code Est Pt Level 3 (27313) Diagnoses Pelvic pressure in female R10.2
== END 2023-12-19 10:00 | disposition home or self-care (01) ==
PROVIDERS: PCP Internal Medicine; Visit Provider Physician Assistant
DX: Z13.9 Encounter for screening, unspecified (principal); R10.2 Pelvic and perineal pain

== ENCOUNTER 2023-12-19 09:03 | Outpatient (REF) | payer MEDICARE, SELFPAY | END 2023-12-19 09:04 | disposition home or self-care (01) | LOC: HO.LAB 09:03 | PROVIDERS: PCP Internal Medicine | DX: R10.2 Pelvic and perineal pain (principal); R39.15 Urgency of urination; R35.0 Frequency of micturition | CPT/HCPCS: 81003; 87086; 99212 ==

== ENCOUNTER 2024-04-07 09:46 | Outpatient (REF) | payer MEDICARE, MEDICAID, SELFPAY ==
[2024-04-07 16:30] LABS: Urine Cytology See Pathology rpt
== END 2024-04-07 09:47 | disposition home or self-care (01) ==
LOC: HO.LAB 09:46
PROVIDERS: PCP Internal Medicine; Visit Provider Urology
DX: C67.9 Malignant neoplasm of bladder, unspecified (principal); F17.210 Nicotine dependence, cigarettes, uncomplicated
CPT/HCPCS: 52000; 81003; 88112; 99212

== ENCOUNTER 2025-02-09 13:04 | Outpatient (REF) | payer MEDICARE, MEDICAID, SELFPAY ==
[2025-02-09 15:18] LABS: Appearance Urine Clear; Glucose Urine UA Negative (Negative); PH 6.0 (5.0-9.0); Specific Gravity - Urine 1.010 (1.005-1.025)
== END 2025-02-09 13:05 ==
LOC: HO.LAB 13:04
PROVIDERS: PCP Internal Medicine; Visit Provider Urology
DX: C67.9 Malignant neoplasm of bladder, unspecified (principal)
CPT/HCPCS: 81001; 87086